=== PATIENT | female | born 1955 | race Caucasian/White ===

== ENCOUNTER 2017-01-10 13:42 | Outpatient (CLI) | payer MEDICAID | END 2017-01-10 16:39 | LOC: D.MAMMO 13:42 | DX: R92.0 Mammographic microcalcification found on diagnostic imaging of breast (principal) ==

== ENCOUNTER 2019-06-02 08:00 | Outpatient (CLI) | payer MEDICAID | END 2019-06-02 23:59 | disposition home or self-care (01) | LOC: D.MAMMO 08:00 | PROVIDERS: ATTEND Nurse Practitioner Family | DX: Z12.31 Encounter for screening mammogram for malignant neoplasm of breast (principal) ==